=== PATIENT | male | born 1995 | race Caucasian/White ===

== ENCOUNTER → 2017-05-23 | Outpatient (CLI) | payer BC, OTHER ==
--- NOTE | 2017-05-23 08:39 | DIAGNOSTIC IMAGING REPORT ---
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 Images are reviewed in the transverse and longitudinal planes. FINDINGS: RIGHT HEMISCROTUM: The right testis measures 4.6 x 2.5 x 3.3 cm. There is a 0.2 x 0.2 x 0.3 cm calcification of the inferior right testicle redemonstrated with additional smaller nonshadowing calcifications scattered throughout the right testicle measuring up to 1 mm. No intratesticular mass is seen. Normal-appearing arterial inflow is present within the right testicle. Minimally complex hypoechoic cystic structure of the right epididymal head measures 2.2 x 1.1 x 1.5 cm, previously measuring 1.0 x 1.0 x 1.3 cm on study dated 09/01/2010. No varicocele or hydrocele is identified. LEFT HEMISCROTUM: The left testis measures 4.6 x 2.3 x 3.0 cm and the parenchyma appears unremarkable with the exception of multiple scattered nonshadowing calcifications measuring up to 1.5 mm. No intratesticular mass is seen. Normal-appearing arterial inflow is present within the left testicle. Scattered left epididymal head cysts are noted. No varicocele or hydrocele is identified. IMPRESSION: 1. 2.2 cm minimally complex hypoechoic cystic lesion of the right epididymal head suggests epididymal head cyst or spermatocele, mildly increased in size from comparison study 09/01/2010. 2. Subcentimeter left epididymal head cysts. 3. Microcalcifications of the bilateral testicles. 4. No evidence of testicular torsion. The above report was generated using voice recognition software. It may contain grammatical, syntax or spelling errors. Electronically signed by: Gaetano Ibrahim M.D. 05/23/2017 8:38 AM Dictated Date/Time: 05/23/2017 8:31 AM
== END | disposition home or self-care (01) ==
LOC: C.ULTRBC 07:50
PROVIDERS: ATTEND Urology
DX: N43.40 Spermatocele of epididymis, unspecified (principal); N50.3 Cyst of epididymis; N50.89 Other specified disorders of the male genital organs